=== PATIENT | male | born 1980 | race Caucasian/White ===

== ENCOUNTER 2017-09-20 08:59 | Emergency (ER) | payer OTHER ==
[2017-09-20] MEDS ORDERED: CEPHALEXIN 500 MG CAPSULE PO STA (09:06)
[2017-09-20] MEDS ORDERED: Diph,Pert(Acell),Tet Vac 0.5 ML SYR IM ONE (09:06)
--- NOTE | 2017-09-20 09:07 | Emergency Department Record ---
History of Present Illness - General Chief complaint: Extremity Problem Stated complaint: L LEG INFECTED Time Seen by Provider: 09/20/17 09:00 Source: Patient Mode of Arrival: Ambulatory Limitations: No limitations - History of Present Illness Initial comments: 36 yo male presents with left leg redness. He scratched the front of his left lower leg a few days ago at work. The area now has some mild redness. No fevers, chills, aches. He is allergic to dairy and refuses tetanus updates. He is otherwise healthy. No chills. MD Complaint: Extremity pain -: Days(s) (1) Location: Left -: Yes Myalgia Radiation: Distal Quality: Aching Consistency: Constant Improves with: Nothing Worsens with: Nothing Associated Symptoms: Denies other symptoms - Related Data Previous Rx's Medication Instructions Recorded Cephalexin [Keflex] 500 mg PO QID #28 cap 09/20/17 Allergies Allergy/AdvReac Type Severity Reaction Status Date / Time Egg Derived Allergy HYPERSENSIT Verified 09/20/17 09:11 IVITY lactase [From Dairy Aid] Allergy HYPERSENSIT Verified 09/20/17 09:11 IVITY Review of Systems Constitutional: Denies: Chills, Fever, Malaise, Weakness Eyes: Denies: Eye discharge ENT: Denies: Congestion, Throat pain Respiratory: Denies: Cough Cardiovascular: Denies: Chest pain, Syncope Endocrine: Denies: Fatigue Gastrointestinal: Denies: Abdominal pain, Diarrhea, Nausea, Vomiting Genitourinary: Denies: Dysuria, Frequency Musculoskeletal: Reports: As per HPI, Myalgia. Denies: Arthralgia, Back pain Skin: Reports: As per HPI, Change in color Neurological: Denies: Headache Psychiatric: Denies: Anxiety Hematological/Lymphatic: Denies: Easy bleeding, Easy bruising Physical Exam - General General Appearance: Alert, Oriented x3, Cooperative, No acute distress Limitations: No limitations - Head Head exam: Normal inspection - Eye Eye exam: Normal appearance - ENT ENT exam: Normal exam Ear exam: Normal external inspection Nasal Exam: Normal inspection Mouth exam: Normal external inspection - Neck Neck exam: Normal inspection - Respiratory Respiratory exam: Normal lung sounds bilaterally. negative: Respiratory distress - Cardiovascular Cardiovascular Exam: Regular rate, Normal rhythm, Normal heart sounds - Extremities Extremities exam: Full ROM, Normal capillary refill. negative: Normal inspection, Calf tenderness, Joint swelling, Pedal edema, Tenderness Image of Full Body: 1 - two linear abrasions. very mild erythema. no swelling. no pus. no fluctuance to suggest abscess. painless weight bearing - Neurological Neurological exam: Alert, Oriented X3 - Psychiatric Psychiatric exam: Normal affect, Normal mood - Skin Skin exam: Erythema Course - Reevaluation(s) Reevaluation #1: 09/20/17 09:12 Mild cellulitis He was instructed to stop triple topical antibiotic as it could be a sensitivity Keflex prescribed He refused tetanus update due to prior reaction with a dairy allergy Disposition Disposition: Discharge Clinical Impression: Cellulitis Qualifiers: Site of cellulitis: unspecified site Qualified Code(s): L03.90 - Cellulitis, unspecified Disposition: Home, Self-Care Condition: (1) Good Instructions: Cellulitis (ED) Additional Instructions: Elevate and avoid prolonged standing Return if worse, fever or chills Take the antibiotic until finished Prescriptions: Cephalexin [Keflex] 500 mg PO QID #28 cap Time of Disposition: 09:13 Quality - Quality Measures Quality Measures: N/A - Blood Pressure Screening Does Patient Have Any of the Following: No Systolic Measurement: ~ Screening for High Blood Pressure: < Pre-Hypertensive BP, F/U Documented > [ G8950] Pre-Hypertensive Follow-up Interventions: Referral to alternative/primary care provider.
== END 2017-09-20 09:30 | disposition home or self-care (01) ==
LOC: ER 08:59
DX: S80.812A Abrasion, left lower leg, initial encounter (principal); L03.116 Cellulitis of left lower limb; W22.8XXA Striking against or struck by other objects, initial encounter
CPT/HCPCS: 99282

== ENCOUNTER 2018-02-07 20:52 | Emergency (ER) | payer OTHER ==
[2018-02-07] MEDS ORDERED: PREDNISONE 20 MG TAB PO ONE (21:05)
[2018-02-07] MEDS ORDERED: IPRATROPIUM/ALBUTEROL (0.5MG/3MG) NEB INH ONE (21:05)
--- NOTE | 2018-02-07 21:10 | Emergency Department Record ---
History of Present Illness - General Chief Complaint: Asthma Stated Complaint: ASTHMA ATTACK Time Seen by Provider: 02/07/18 21:05 Source: Patient Mode of Arrival: Ambulatory Limitations: No limitations - History of Present Illness Initial Comments: 37 yo male presents to ED for evaluation of difficulty in breathing, wheezing, and non-productive cough symptoms that began this evening while vacuuming up pet hair and dander. Patient reports a history of asthma exacerbated by pet hair as well. Patient used his SO's pro-air at home this evening with some improvement, however symptoms worsened within 1 hour of using the inhaler. Patient denies fevers, chills, or recent illness symptoms. MD Complaint: "Asthma attack" Onset/Timin -: Hour(s) Asthma History: Childhood onset Severity: Moderate Context: Pet exposure Associated Symptoms: Dry cough Treatments Prior to Arrival: Inhaled bronchodilator - Related Data Current Asthma Therapy: None Previous Rx's Medication Instructions Recorded Albuterol Sulfate [Proair Hfa] 1 - 2 puff IH .EVERY 4-6 HOURS PRN 02/07/18 #1 inhaler Prednisone [Prednisone 20Mg] 20 mg PO TID #12 tab 02/07/18 Allergies Allergy/AdvReac Type Severity Reaction Status Date / Time Egg Derived Allergy HYPERSENSIT Verified 02/07/18 21:06 IVITY lactase [From Dairy Aid] Allergy HYPERSENSIT Verified 02/07/18 21:06 IVITY red dye Allergy HYPERSENSIT Verified 02/07/18 21:26 IVITY Review of Systems Constitutional: Denies: Chills, Fever, Malaise, Night sweats Eyes: Denies: Eye discharge, Eye pain ENT: Denies: Congestion, Ear pain, Epistaxis Respiratory: Reports: Cough, Dyspnea, Wheezes Cardiovascular: Denies: Chest pain, Dyspnea on exertion, Edema Endocrine: Denies: Fatigue, Heat or cold intolerance Gastrointestinal: Denies: Abdominal pain, Nausea, Vomiting Genitourinary: Denies: Incontinence, Retention Musculoskeletal: Denies: Arthralgia, Back pain Skin: Denies: Bruising, Change in color, Change in hair/nails Neurological: Denies: Abnormal gait, Confusion, Headache, Seizure Psychiatric: Denies: Anxiety Hematological/Lymphatic: Denies: Anemia, Blood Clots Past Medical History - SOCIAL HISTORY Smoking Status: Never smoker Drug Use: None - RESPIRATORY Hx Respiratory Disorders: Yes Hx Asthma: Yes - CARDIOVASCULAR Hx Cardio Disorders: No - NEURO Hx Neuro Disorders: No - GI Hx GI Disorders: No - Hx Genitourinary Disorders: No - ENDOCRINE Hx Endocrine Disorders: No - MUSCULOSKELETAL Hx Musculoskeletal Disorders: No - PSYCH Hx Psych Problems: No - HEMATOLOGY/ONCOLOGY Hx Hematology/Oncology Disorders: No Family Medical History Hx Heart Disease: Father Physical Exam - General General Appearance: Alert, Oriented x3, Cooperative, Moderate distress Limitations: No limitations - Head Head exam: Atraumatic, Normocephalic, Normal inspection Head exam detail: negative: Abrasion, Contusion, Bernabe's sign, General tenderness, Hematoma, Laceration - Eye Eye exam: Normal appearance. negative: Conjunctival injection, Periorbital swelling, Periorbital tenderness, Scleral icterus - ENT Ear exam: negative: Auricular hematoma, Auricular trauma Nasal Exam: negative: Active bleeding, Discharge, Dried blood, Foreign body Mouth exam: negative: Drooling, Laceration, Muffled voice, Tongue elevation - Neck Neck exam: Normal inspection. negative: Meningismus, Tenderness - Respiratory Respiratory exam: Respiratory distress, Wheezes. negative: Rales, Rhonchi, Stridor - Cardiovascular Cardiovascular Exam: Regular rate, Normal rhythm, Normal heart sounds - GI/Abdominal GI/Abdominal exam: Soft. negative: Rebound, Rigid, Tenderness - Rectal Rectal exam: Deferred - exam: Deferred - Extremities Extremities exam: Normal inspection. negative: Pedal edema, Tenderness - Back Back exam: Denies: CVA tenderness (R), CVA tenderness (L) - Neurological Neurological exam: Alert, Normal gait, Oriented X3 - Psychiatric Psychiatric exam: Normal affect, Normal mood - Skin Skin exam: Normal color. negative: Abrasion Type of lesion: negative: abrasion Course Vital Signs 02/07/18 20:58 Temperature 98.1 F Pulse Rate [ 94 H Pulse Ox Probe] Respiratory 16 Rate Blood Pressure 120/86 [Left Arm] Pulse Ox 93 L - Reevaluation(s) Reevaluation #1: 02/07/18 21:09 Patient was seen and examined, duoneb ordered as well as Prednisone. Will reassess in 20-30 minutes. Reevaluation #2: 02/07/18 22:09 Patient was reassessed following 2nd breathing treatment, patient appears stable for discharge at this time. Disposition Disposition: Discharge Clinical Impression: Acute asthma exacerbation Qualifiers: Asthma severity: mild Asthma persistence: intermittent Qualified Code(s): J45.21 - Mild intermittent asthma with (acute) exacerbation Disposition: Home, Self-Care Condition: (2) Stable Instructions: Asthma (ED) Additional Instructions: Return to ED if your symptoms worsen or if you have any concerns. Prednisone as directed. Follow-up with your family doctor in 3-5 days as directed. Prescriptions: Albuterol Sulfate [Proair Hfa] 1 - 2 puff IH .EVERY 4-6 HOURS PRN #1 inhaler PRN Reason: Difficulty In Breathing Prednisone [Prednisone 20Mg] 20 mg PO TID #12 tab Forms: Patient Portal Access Time of Disposition: 22:09 Quality - Quality Measures Quality Measures: N/A - Blood Pressure Screening Does Patient Have Any of the Following: No Blood Pressure Classification: Pre-Hypertensive BP Reading Systolic Measurement: 120 Diastolic Measurement: 86 Screening for High Blood Pressure: < Pre-Hypertensive BP, F/U Documented > [ G8950] Pre-Hypertensive Follow-up Interventions: Referral to alternative/primary care provider.
[2018-02-07] MEDS ORDERED: ALBUTEROL SULFATE (0.083%) 2.5 MG/3 ML NEB INH SCH (21:30)
== END 2018-02-07 22:24 | disposition home or self-care (01) ==
LOC: ER 20:52
DX: J45.21 Mild intermittent asthma with (acute) exacerbation (principal)
CPT/HCPCS: 99283 ×2; 94640 ×2; J7512; J7613

== ENCOUNTER 2018-10-27 21:24 | Emergency (ER) | payer OTHER ==
[2018-10-27] MEDS ORDERED: ORPHENADRINE CITRATE 60MG/2ML VIAL IM ONE (21:50)
[2018-10-27] MEDS ORDERED: KETOROLAC 30 MG/ML VIAL IM ONE (21:50)
--- NOTE | 2018-10-27 22:02 | Emergency Department Record ---
History of Present Illness - General Chief Complaint: Back Pain/Injury Stated Complaint: BACK PAIN LT SHOULDER BLADE,LT HAND NUM/LT TOE NUM Time Seen by Provider: 10/27/18 21:41 Source: Patient Mode of Arrival: Ambulatory Limitations: No limitations - History of Present Illness Initial Comments: pt has pain in his l upper back for 3 days along the scapula border. today he is getting numbness in his left 4th and 5th fingers. he denies injury but does do a lot of heavy lifting at work. MD Complaint: Back pain Onset/Timin -: Days(s) Similar Symptoms Previously: No Severity: Mild Consistency: Constant Improves With: None Worsens With: Movement Associated Symptoms: Numbness - Related Data Previous Rx's Medication Instructions Recorded Albuterol Sulfate [Proair Hfa] 1 - 2 puff IH .EVERY 4-6 HOURS PRN 02/07/18 #1 inhaler Cyclobenzaprine HCl [Flexeril] 10 mg PO TID #14 tablet 10/27/18 Ibuprofen [Motrin] 800 mg PO Q8H PRN #20 tab 10/27/18 Allergies Allergy/AdvReac Type Severity Reaction Status Date / Time Egg Derived Allergy HYPERSENSIT Verified 10/27/18 21:37 IVITY lactase [From Dairy Aid] Allergy HYPERSENSIT Verified 10/27/18 21:37 IVITY red dye Allergy HYPERSENSIT Verified 10/27/18 21:37 IVITY gluten AdvReac ABDOMINAL Verified 10/27/18 21:37 PAIN Travel Screening - Travel/Exposure Within Last 30 Days Have you traveled within the last 30 days?: No - Travel/Exposure Within Last Year Have you traveled outside the [place] in the last year?: No - Additonal Travel Details Have you been exposed to anyone with a communicable illness?: No - Travel Symptoms Symptom Screening: None Review of Systems Reviewed: No additional complaints except as noted below Constitutional: Reports: As per HPI. Denies: Chills, Fever, Malaise, Night sweats, Weakness, Weight change Eyes: Reports: As per HPI. Denies: Eye discharge, Eye pain, Photophobia, Vision change ENT: Reports: As per HPI. Denies: Congestion, Dental pain, Ear pain, Epistaxis, Hearing loss, Throat pain Respiratory: Reports: As per HPI. Denies: Cough, Dyspnea, Hemoptysis, Stridor, Wheezes Cardiovascular: Reports: As per HPI. Denies: Arrhythmia, Chest pain, Dyspnea on exertion, Edema, Murmurs, Orthopnea, Palpitations, Paroxysmal nocturnal dyspnea, Rheumatic Fever, Syncope Endocrine: Reports: As per HPI. Denies: Fatigue, Heat or cold intolerance, Polydipsia, Polyuria Gastrointestinal: Reports: As per HPI. Denies: Abdominal pain, Constipation, Diarrhea, Hematemesis, Hematochezia, Melena, Nausea, Vomiting Genitourinary: Reports: As per HPI. Denies: Dysuria, Frequency, Hematuria, Incontinence, Retention, Testicular pain, Testicular mass, Urgency Musculoskeletal: Reports: As per HPI, Back pain. Denies: Arthralgia, Gout, Joint swelling, Myalgia, Neck pain Skin: Reports: As per HPI. Denies: Bruising, Change in color, Change in hair/nails, Lesions, Pruritus, Rash Neurological: Reports: As per HPI. Denies: Abnormal gait, Confusion, Headache, Numbness, Paresthesias, Seizure, Tingling, Tremors, Vertigo, Weakness Psychiatric: Reports: As per HPI. Denies: Anxiety, Auditory hallucinations, Depression, Homicidal thoughts, Suicidal thoughts, Visual hallucinations Hematological/Lymphatic: Reports: As per HPI. Denies: Anemia, Blood Clots, Easy bleeding, Easy bruising, Swollen glands Past Medical History - SOCIAL HISTORY Smoking Status: Never smoker Alcohol Use: None Drug Use: None - RESPIRATORY Hx Respiratory Disorders: Yes Hx Asthma: Yes - CARDIOVASCULAR Hx Cardio Disorders: No - NEURO Hx Neuro Disorders: No - GI Hx GI Disorders: No - Hx Genitourinary Disorders: No - ENDOCRINE Hx Endocrine Disorders: No - MUSCULOSKELETAL Hx Musculoskeletal Disorders: No - PSYCH Hx Psych Problems: No - HEMATOLOGY/ONCOLOGY Hx Hematology/Oncology Disorders: No Family Medical History Any Significant Family History?: No Hx Heart Disease: Father Physical Exam - General General Appearance: Alert, Oriented x3, Cooperative, Mild distress - Head Head exam: Normal inspection - Eye Eye exam: Normal appearance, PERRL, EOMI Pupils: Normal accommodation - ENT ENT exam: Normal exam, Mucous membranes moist, Normal external ear exam, Normal orophraynx Ear exam: Normal external inspection. negative: External canal tenderness Nasal Exam: Normal inspection. negative: Discharge, Sinus tenderness Mouth exam: Normal external inspection, Tongue normal Teeth exam: Normal inspection. negative: Dental caries Throat exam: Normal inspection. negative: Tonsillar erythema, Tonsillar exudate - Neck Neck exam: Normal inspection, Full ROM. negative: Tenderness - Respiratory Respiratory exam: Normal lung sounds bilaterally. negative: Respiratory distress - Cardiovascular Cardiovascular Exam: Regular rate, Normal rhythm, Normal heart sounds - GI/Abdominal GI/Abdominal exam: Soft, Normal bowel sounds. negative: Tenderness - Rectal Rectal exam: Deferred - exam: Deferred - Extremities Extremities exam: Normal inspection, Full ROM, Normal capillary refill. negative: Tenderness - Back Back exam: Reports: Normal inspection, Full ROM, Muscle spasm, Paraspinal tenderness, Tenderness. Denies: Rash noted - Neurological Neurological exam: Alert, Normal gait, Oriented X3, Reflexes normal - Psychiatric Psychiatric exam: Normal affect, Normal mood - Skin Skin exam: Dry, Intact, Normal color, Warm Course Vital Signs 10/27/18 21:29 Temperature 97.7 F Pulse Rate [ 72 Pulse Ox Probe] Respiratory 20 Rate Blood Pressure 137/92 [Left Arm] Pulse Ox 99 - Reevaluation(s) Reevaluation #1: 10/27/18 23:11 pt still having pain but not as bad. Disposition Disposition: Discharge Clinical Impression: Radiculopathy Qualifiers: Spinal region: cervicothoracic Qualified Code(s): M54.13 - Radiculopathy, cervicothoracic region Disposition: Home, Self-Care Condition: (1) Good Instructions: Cervical Radiculopathy (ED) Additional Instructions: follow up with family doctor. return sooner if worse. if symptoms continue have an mri. no lifting more then 5 pounds for 5 days Prescriptions: Cyclobenzaprine HCl [Flexeril] 10 mg PO TID #14 tablet Ibuprofen [Motrin] 800 mg PO Q8H PRN #20 tab PRN Reason: Pain - Moderate (5-7) Forms: Patient Portal Access, Return to Work/School Quality - Quality Measures Quality Measures: N/A - Blood Pressure Screening Does Patient Have Any of the Following: No Blood Pressure Classification: Hypertensive Reading Systolic Measurement: 137 Diastolic Measurement: 92 Screening for High Blood Pressure: < First Hypertensive BP, F/U Documented > [G8950] First Hypertensive Follow-up Interventions: Follow-up with rescreen GT 1 day and LT 4 weeks.
[2018-10-27] MEDS ORDERED: HYDROCODONE/APAP 5/325MG TABLET PO ONE (23:10)
--- NOTE | 2018-10-30 08:16 | RADIOLOGY REPORT ---
EXAM: CERVICAL SPINE AP & LATERAL HISTORY: LEFT SHOULDER PAIN. TECHNIQUE: Frontal, lateral, odontoid. COMPARISON: None. FINDINGS: Vertebral body height and alignment appears maintained. Spinal lines appear maintained. There appears to be mild disc space narrowing at the C7/T1 disc. No prevertebral soft tissue swelling identified. No radiopaque foreign body visualized. IMPRESSION: MILD DISC SPACE NARROWING AT C7/T1. IF CLINICALLY INDICATED, MRI COULD STUDY FURTHER. JOB NUMBER: [id number] [facility]
--- NOTE | 2018-11-01 06:47 | RADIOLOGY REPORT ---
EXAM: THORACIC SPINE HISTORY: UPPER BACK PAIN. COMPARISON: None. TECHNIQUE: Frontal, lateral, and swimmers. FINDINGS: There is a mild levocurvature of the upper thoracic spine. Vertebral body height and alignment otherwise appears maintained. Mild endplate spurring noted. Disc space heights appears maintained. Pedicles appear intact, as visualized. No adjacent rib fracture visualized. IMPRESSION: MILD LEVOCURVATURE. MILD SPURRING. THE NEED FOR ADDITIONAL IMAGING SHOULD BE DETERMINED CLINICALLY. J[facility]BER: [id number] [facility]
== END 2018-10-27 23:27 | disposition home or self-care (01) ==
LOC: ER 21:24
DX: M54.13 Radiculopathy, cervicothoracic region (principal)
CPT/HCPCS: 99284 ×2; 96372; 72040; 72072; J1885; J2360

== ENCOUNTER 2019-02-02 18:33 | Emergency (ER) | payer OTHER ==
--- NOTE | 2019-02-02 18:50 | Emergency Department Record ---
History of Present Illness - General Chief Complaint: Tremor Stated Complaint: TREMORS,WEAKNESS IN THIGHS Time Seen by Provider: 02/02/19 18:36 Source: Patient Mode of Arrival: Ambulatory Limitations: No limitations - History of Present Illness Initial comments: 38 yo male presents to ED for evaluation of worsening upper extremity tremor over the past several days, reports that he was previously diagnosed with a benign tremor disorder previously. Patient also reports increased stress at home, denies fevers, chills, or recent illness. Patient denies focal weakness symptoms on examination. Patient has not seen an neurologist as of yet, has not undergone MRI of the brain but did undergo CT imaging of the brain previously that appeared "normal". -: Days(s) Location: Left, Upper extremity Radiation: Non-Radiating Consistency: Intermittent Associated Symptoms: Denies other symptoms - Michael Coma Scale Eye Response: (4) Open spontaneously Motor Response: (6) Obeys commands Verbal Response: (5) Oriented Michael Total: 15 - Related Data Previous Rx's Medication Instructions Recorded Albuterol Sulfate [Proair Hfa] 1 - 2 puff IH .EVERY 4-6 HOURS PRN 02/07/18 #1 inhaler Allergies Allergy/AdvReac Type Severity Reaction Status Date / Time Egg Derived Allergy HYPERSENSIT Verified 02/02/19 18:48 IVITY lactase [From Dairy Aid] Allergy HYPERSENSIT Verified 02/02/19 18:48 IVITY red dye Allergy HYPERSENSIT Verified 02/02/19 18:48 IVITY gluten AdvReac ABDOMINAL Verified 02/02/19 18:48 PAIN Review of Systems Constitutional: Denies: Chills, Fever, Malaise, Night sweats Eyes: Denies: Eye discharge, Eye pain ENT: Denies: Congestion, Ear pain, Epistaxis Respiratory: Denies: Cough, Dyspnea Cardiovascular: Denies: Chest pain, Dyspnea on exertion Endocrine: Denies: Fatigue, Heat or cold intolerance Gastrointestinal: Denies: Abdominal pain, Nausea, Vomiting Genitourinary: Denies: Incontinence, Retention Musculoskeletal: Denies: Arthralgia, Back pain Skin: Denies: Bruising, Change in color Neurological: Reports: Tremors. Denies: Abnormal gait, Confusion, Headache, Numbness, Paresthesias, Tingling Psychiatric: Denies: Anxiety Hematological/Lymphatic: Denies: Anemia, Blood Clots Past Medical History - SOCIAL HISTORY Smoking Status: Never smoker Drug Use: None - RESPIRATORY Hx Respiratory Disorders: Yes Hx Asthma: Yes - CARDIOVASCULAR Hx Cardio Disorders: No - NEURO Hx Neuro Disorders: No - GI Hx GI Disorders: No - Hx Genitourinary Disorders: No - ENDOCRINE Hx Endocrine Disorders: No - MUSCULOSKELETAL Hx Musculoskeletal Disorders: No - PSYCH Hx Psych Problems: No - HEMATOLOGY/ONCOLOGY Hx Hematology/Oncology Disorders: No Family Medical History Hx Heart Disease: Father Physical Exam - General General Appearance: Alert, Oriented x3, Cooperative, No acute distress, Other (Ambulates with steady gait, no focal weakness on examination.) Limitations: No limitations - Head Head exam: Atraumatic, Normocephalic, Normal inspection Head exam detail: negative: Abrasion, Contusion, Bernabe's sign, General tenderness, Hematoma, Laceration - Eye Eye exam: Normal appearance. negative: Conjunctival injection, Periorbital swelling, Periorbital tenderness, Scleral icterus - ENT Ear exam: negative: Auricular hematoma, Auricular trauma Nasal Exam: negative: Active bleeding, Discharge, Dried blood, Foreign body Mouth exam: negative: Drooling, Laceration, Muffled voice, Tongue elevation - Neck Neck exam: Normal inspection. negative: Meningismus, Tenderness - Respiratory Respiratory exam: Normal lung sounds bilaterally. negative: Respiratory distress, Rhonchi, Stridor, Wheezes - Cardiovascular Cardiovascular Exam: Regular rate, Normal rhythm, Normal heart sounds - GI/Abdominal GI/Abdominal exam: Soft. negative: Distended, Rebound, Rigid, Tenderness - Rectal Rectal exam: Deferred - exam: Deferred - Extremities Extremities exam: Other (Mild resting tremor of the LUE, patient is able to control the tremor on examination.). negative: Calf tenderness, Pedal edema, Tenderness - Back Back exam: Denies: CVA tenderness (R), CVA tenderness (L) - Neurological Neurological exam: Alert, Normal gait, Oriented X3 - Psychiatric Psychiatric exam: Normal affect, Normal mood - Skin Skin exam: Normal color. negative: Abrasion Type of lesion: negative: abrasion Course - Reevaluation(s) Reevaluation #1: 02/02/19 19:26 Laboratory studies were reviewed and appear grossly unremarkable for an acute process. Symptoms are likely the result of increased stress, however I did discuss obtaining neurology referral for MRI and consultation with the patient through his PCP. Patient verbalizes understanding of all instructions and appears stable for discharge at this time. Medical Decision Making - Lab Data Result diagrams: 02/02/19 19:01 02/02/19 19:01 Disposition Disposition: Discharge Clinical Impression: Benign essential tremor Disposition: Home, Self-Care Condition: (2) Stable Instructions: Tremors (ED) Additional Instructions: Return to ED if your symptoms worsen or if you have any concerns. Follow-up with your family doctor in 3-5 days for neurology referral and possible MRI of the brain for further evaluation. Forms: Patient Portal Access Time of Disposition: 18:52 Quality - Quality Measures Quality Measures: N/A - Blood Pressure Screening Does Patient Have Any of the Following: No Blood Pressure Classification: Pre-Hypertensive BP Reading Systolic Measurement: 120 Diastolic Measurement: 79 Screening for High Blood Pressure: < Pre-Hypertensive BP, F/U Documented > [G8950] Pre-Hypertensive Follow-up Interventions: Referral to alternative/primary care provider.
[2019-02-02 19:08] LABS: ABSOLUTE NEUTROPHIL COUNT 3.94; BASO % 0.4 % (0-6); EOS % 4.2 % (0-6); GRAN % 69.7 % (47-80); HEMATOCRIT 43.9 % (42.0-52.0); HEMOGLOBIN 14.2 gm/dl (14.0-18.0); LYMPH % 15.8 % (16-45); MEAN CELL VOLUME 88.5 fl (81-97); MEAN CORPUSCULAR HEMOGLOBIN 28.6 pg (27-33); MEAN CORPUSCULAR HGB CONC 32.3 g/dl (32-36); MONO % 9.9 % (0-9); PLATELET COUNT 188 K/uL (130-400); RED BLOOD COUNT 4.96 M/uL (4.40-5.70); RED CELL DISTRIBUTION WIDTH 13.6 % (11.5-14.5); WHITE BLOOD COUNT W/O DIFF 5.7 K/uL (4.2-12.2)
[2019-02-02 19:18] LABS: BLOOD UREA NITROGEN 25 mg/dL (6-20)
[2019-02-02 19:19] LABS: EST GLOMERULAR FILTRATION RATE > 60 mL/min; TOTAL PROTEIN 6.4 g/dL (6.6-8.7)
[2019-02-02 19:21] LABS: GLUCOSE,RANDOM 100 mg/dL (74-109)
[2019-02-02 19:24] LABS: ALB/GLOB RATIO 2.2 (1.1-1.8); ALBUMIN 4.4 g/dL (4.0-5.0); ALKALINE PHOSPHATASE 70 U/L (40-129); ALT/SGPT 32 U/L (<41); AST/SGOT 26 U/L (10.0-50.0)
== END 2019-02-02 19:45 | disposition home or self-care (01) ==
LOC: ER 18:33
DX: G25.0 Essential tremor (principal)
CPT/HCPCS: 80053; 85025; 99283